=== PATIENT | female | born 1980 | race Hispanic/Latino ===

== ENCOUNTER 2017-11-13 19:18 | Observation (INO) | payer BC, OTHER ==
[2017-11-13] MEDS ORDERED: Lorazepam 2 MG/ML VIAL ONE (20:15)
[2017-11-13] MEDS ORDERED: Morphine 4 MG/ML VIAL ONE (20:15)
[2017-11-13] MEDS ORDERED: Dexamethasone 10 MG/ML VIAL ONE (20:16)
[2017-11-13 20:31] LABS: #Lymphocytes 1.5 thou/uL (1.20-3.40); #Monocytes 0.4 thou/uL (0.11-0.59); %Basophils 0.1 % (0.0-1.0); %Eosinophils 0.2 % (0.0-10.0); %Lymphocytes 10.1 % (21.0-51.0); %Monocytes 2.8 % (0.0-10.0); %Neutrophils 86.8 % (42.0-75.0); Hemoglobin 13.1 g/dL (12.0-16.0); Mean Corpuscular HGB CONC 35.5 g/dL (32.0-36.0); Mean Corpuscular Hemoglobin 33.1 pg (27.0-31.0); Mean Corpuscular Volume 93.3 fl (81.0-99.0); Mean Platelet Volume 7.2 fL (7.4-10.4); Platelet Count 319 thou/uL (130-400); RBC Distribution Width 11.3 % (11.5-14.5); Red Blood Cell (RBC) Count 3.95 mill/uL (4.20-5.40)
[2017-11-13 20:49] LABS: Anion Gap 10 mmol/L (10-20); BUN (Urea Nitrogen) 15 mg/dL (7.0-18.7); Calc. Creatinine Clearance 0 mL/min (70-130); Calcium 8.4 mg/dL (7.8-10.44); Carbon Dioxide 22 mmol/L (22-29); Chloride 109 mmol/L (98-107); Estimated GFR-MDRD 77; Glucose 146 mg/dL (70-105); Potassium 4.4 mmol/L (3.5-5.1); Sodium 137 mmol/L (136-145)
[2017-11-13 20:50] LABS: BHCG - Serum Negative (NEGATIVE); Pregs Control Background? CLEAR/WHITE (CLR/WHITE); Pregs Control Bar Appear? YES (CONTROL BAR)
--- NOTE | 2017-11-13 21:27 | PDOC.FPRHP ---
- History of Present Illness Chief Complaint: Low back pain History of Present Illness: 37 year old female with PMH of L4-L5 herniated disc and L3-L4 spinal fusion that presents with acutely worsening low back pain that radiates down her right leg. Patient states she has been dealing with this same pain since before her spinal fusion, but she has been able to tolerate it and carry on with her daily activities. She has tried multiple medications to include muscle relaxers, ibuprofen, and steroids. 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 Over the last two days they have not been effective at all. She was seen at [facility] yesterday and was given medications for pain control which did not help. She was then sent home. The pain has worsened to the point that she cannot bear weight on the right side. She is having difficulty lifting her leg to walk. Additionally, patient endorses numbness and tingling down the right extremity to the level of the toes. Pain is improved when lying flat. Patient denies any loss of bowel or bladder function. Patient' s spinal operation took place in October of [address] Ledbetter. Patient has been following with Dr. Ledbetter since that time. She has mentioned her pain to him recently and he had her get a suspension table for which she has been using. An MRI in August of 2016 showed similar changes seen on today's CT. Patient has been reluctant to have any surgical interventions up to this point; however, due to the nature of the pain and the limitations it is causing in her daily life, she is open to all options. Patient does endorse some mild urinary retention. She is able to urinate, but it has become less frequent. Patient denies any fever. Patient states that since the worsening of these symptoms, she has reached out to the [facility]. They were not able to get her in until Monday, November 20, 2017. At the [facility] yesterday, neurosurgery was called, and Dr. Osorio asked that patient follow up on an outpatient basis. He recommended 60 mg prednisone for 5 days. Based on ED records, it is unclear whether or not neurosurgery came to evaluate patient. ED Course: Patient given 10 mg decadron, 4 mg of morphine, and 1 mg of ativan in ED. - Allergies/Adverse Reactions Allergies Allergy/AdvReac Type Severity Reaction Status Date / Time tramadol AdvReac Verified 11/13/17 23:57 - Home Medications Medication Instructions Recorded Confirmed Type Diazepam [Diazepam] 5 mg PO Q4H 11/14/17 11/14/17 History Ibuprofen 800 mg PO PRN PRN 11/14/17 11/14/17 History predniSONE [predniSONE] 20 mg PO TID 11/14/17 11/14/17 History Comments: Patient has taken flexeril, steroids, and ibuprofen intermittently over the course of the last several years. She does endorse she takes ibuprofen 800 mg daily. - History PMHx: Hx of herniated disc PSHx: Spinal fusion L4-L5, BTL FHx: Non-contributory Social: Patient denies tobacco, alcohol, or drug use - Review of Systems General: denies: fever/chills, weight/appetite/sleep changes, night sweats, fatigue Eyes: denies: vision changes ENT: denies: nasal congestion, rhinorrhea Respiratory: reports: exercise intolerance (due to pain in low back and right leg). denies: cough, congestion, shortness of breath Cardiovascular: denies: chest pain, palpitation, edema Gastrointestinal: denies: nausea, vomiting, diarrhea, constipation, abdominal pain Genitourinary: reports: other (Mild urinary retention 2/2 back pain when trying to urinate. Feels as though cannot completely empty bladder.). denies: incontinence, dysuria, polyuria Skin: denies: rashes, lesions, jaundice Musculoskeletal: reports: pain (LBP and right leg pain), tenderness. denies: swelling, arthritis/arthralgias Neurological: reports: numbness, weakness (Right lower exremity). denies: syncope, seizure Psychological: denies: anxiety, depression - Vital signs BP: 123/76 HR: 81 RR: 18 Tmax: 97.7 F Pox: 97% on RA Wt: 83.91 kg - Physical Exam Constitutional: NAD, awake, alert and oriented, well developed HEENT: normocephalic and atraumatic, EOMI, conjunctiva clear, no scleral icterus Neck: supple Heart: RRR, normal S1/S2, no murmurs/rubs/gallops, pulses present, no edema Lungs: CTAB, no respiratory distress, good air movement, no rales/rhonchi, no wheezing Abdomen: soft, non-tender, bowel sounds present, no masses/distention Musculoskeletal: normal tone -Musculoskeletal: Positive straight leg raise on right. -Neurological: Impaired sensation on right lower extremity. Strength 5/5 in bilateral lower extremities, although there was mild weakness of right lower extremity compared to the left lower extremity. DTR's 2+ in bilateral lower extremities. No clonus. Normal rectal tone. Skin: no rash/lesions, good turgor, capillary refill <2 seconds Heme/Lymphatic: no unusual bruising or bleeding, no purpura, no petechia Psychiatric: normal mood and affect, good judgment and insight, intact recent and remote memory FMR H&P: Results - Labs Result Diagrams: 11/13/17 20:21 11/13/17 20:21 Lab results: WBC 15.0 thou/uL (4.8-10.8) H 11/13/17 20:21 Hgb 13.1 g/dL (12.0-16.0) 11/13/17 20:21 Hct 36.9 % (36.0-47.0) 11/13/17 20:21 MCV 93.3 fl (81.0-99.0) 11/13/17 20:21 Plt Count 319 thou/uL (130-400) 11/13/17 20:21 Neutrophils % 86.8 % (42.0-75.0) H 11/13/17 20:21 ESR Westergren 1 mm/hr (Less than 20) 11/13/17 20:21 Sodium 137 mmol/L (136-145) 11/13/17 20:21 Potassium 4.4 mmol/L (3.5-5.1) 11/13/17 20:21 Chloride 109 mmol/L (98-107) H 11/13/17 20:21 Carbon Dioxide 22 mmol/L (22-29) 11/13/17 20:21 BUN 15 mg/dL (7.0-18.7) 11/13/17 20:21 Creatinine 0.83 mg/dL (0.6-1.1) 11/13/17 20:21 Glucose 146 mg/dL (70-105) H 11/13/17 20:21 Calcium 8.4 mg/dL (7.8-10.44) 11/13/17 20:21 C-Reactive Protein Less than 0.50 mg/dL (= or < 0.5) 11/13/17 20:21 - Radiology Interpretation Other Status: report reviewed by me Additional comment: CT Lumbar spine without contrast: Right pericentral disc protrusion with canal stenosis at L4. Post op changes seen at L3-L4. FMR H&P: A/P - Problem List (1) Intractable low back pain Current Visit: No Status: Acute Code(s): M54.5 - LOW BACK PAIN (2) Lumbar herniated disc Current Visit: No Status: Chronic Code(s): M51.26 - OTHER INTERVERTEBRAL DISC DISPLACEMENT, LUMBAR REGION - Plan Intractable back pain: - 2/2 herniated disc at level of L4-L5 - Will continue decadron and add flexiril PRN for pain control - Pt with snf ibuprofen use, consider switching to celebrex - Monitor symptoms - Consider neurosurgical evaluation if symptoms persist or worsen - Mild urinary retention with no other suspicious findings concerning for cauda equina syndrome Herniated disc at L4-L5 - Evident on CT lumbar spine without contrast - Recommend follow up MRI; may consider as outpatient - Patient has appointment set up with [facility] on 2017 - Pt sees orthopedic surgeon, Dr. Ledbetter on an outpatient basis - May need surgical intervention; pt open to hearing options Code status: full PCP: Dr. Kirkpatrick PPX: DVT: SCDs GI: Famotidine Dispo: Admit for observation. Anticipate LOS <48 hours. FMR H&P: Upper Level - Pertinent history 37 yo HF with PMHx degenerative disc disease of spine and bulging disc presented to ED for worsening R leg pain/numbness. Pt endorses hx of R hip pain with some sciatica symptoms present for at least 2 years. She had an L3-L4 spinal fusion in 10/[address] Ledbetter (orthopedic surgery) although she apparently had other disease that could not be fixed due to anatomic technicalities (pt reports pedicles were too thin). She endorses worsening of her symptoms over last 3 days with pain in R leg severe enough to keep her from walking on it. She drags her leg instead due to pain. Endorses numbness/ tingling down entire leg into her foot. She also endorses feeling or urinary retention although she is still able to urinate. It takes longer to get urine to flow. Pain improves with laying flat. Worse with driving or standing. Pt went to [facility] ED yesterday; received steroids and dilaudid. Came back today due to worsened pain. Recently saw Dr. Ledbetter who reviewed an MRI performed 06/25 and said she might need more surgery. She has been taking NSAIDs, muscle relaxers, and steroids intermittently during this last year without much benefit. - Pertinent findings Gen: alert, laying flat in no distress CV: RRR, no m/r/g Lungs: CTAB, no increased WOB Abd: NT/ND Neuro: sensation feels different over anterior R leg (upper/lower) including dorsal/plantar foot compared to L; normal reflexes, no clonus, muscle strength 5 /5 BLE although R leg mildly decreased due to pain; gait not assessed 2/2 pain; great toe extension 5/5 bilaterally - Plan Date/Time: 11/13/172124 1. Disc herniation. CT lumbar spine confirms R paracentral disc protrusion with mild-moderate canal narrowing. Suggested nonemergent MRI. Previous MRI from through PCP mentioned improvement of prior document L4-L5 disc protrusion but L3-L4 and L5-S1 small disc protrusions were present at that time. Neuro exam not consistent with cauda equine syndrome. Only red flag symptom is new complaint of urinary retention although at this point still able to void. Will monitor closely. Ordering MRI to better evaluate. At [facility] yesterday, NSGY was called and appears outpatient f/u was recommended and 5 day course of steroids. She has an appt in 1 wk with [facility]. Bringing in under observation for pain control. Expect improvement with steroids and attempt to hold over until appt next week. Add flexeril. NSGY if needed. I, Oscar Santoro, have evaluated this patient and agree with findings/plan as outlined by wireless internet installer resident. Pertinent changes/additions are listed here. Attending Addendum - Attending Addendum Date/Time: 11/14/17 8875 I personally evaluated the patient and discussed the management with Dr. Mosquera and Dr. Santoro I agree with the History, Examination, Assessment and Plan documented above with any addition or exceptions noted below. 37 yo female with history of degenerative disk dz presents with intractable sciatic nerve pain and parathesia. Intractable pain that is unbearable over the last few days. Has been seen at outside ER yesterday. Unable to do anything without exacerbating the pain. Parathesia has worsen in this time period. Reports intermitted episodes that improve with conservative therapy but has not help current pain. Denies any loss of function. Has scheduled appointment on Monday with Spine MD. Labs reviewed. Imaging notes some stenosis. Admit for pain control. Start steroid taper. Add gabapentin or lyrica. Has been on Ibuprofen consider trying new NSAID vs celebrex. Add muscle relaxer as needed but does not appear to have complications related to spasms. If able to improve with regiment then will be able to get home for appointment otherwise consider consulting anaesthesia for pain. No upper or lower motor neuron findings on exam. Toni
[2017-11-13 21:29] LABS: Bilirubin Negative (Negative); Blood, Urine Negative (Negative); Clarity CLEAR (Clear); Glucose, Urine (Dipstick) Negative (Negative); Leukocyte Negative (Negative); Nitrite Negative (Negative); Protein, Urine (Dipstick) Negative (Neg-Trace); Specific Gravity, Urine 1.023 (1.002-1.036); pH, Urine 7.5 (5.0-9.0)
--- NOTE | 2017-11-13 21:39 | CT ---
CT LUMBAR SPINE PERFORMED WITHOUT CONTRAST ENHANCEMENT: HISTORY: Back pain and numbness down the entire right leg. History of previous surgery. FINDINGS: The vertebral bodies are normal in height. Postoperative changes are seen at the L3-L4 level. There are markers of a disk implant at this level, which are within the confines of the disk level and, po steriorly, an interspinous spacer is present. T12-L1: Unremarkable. L1-L2: Unremarkable. L2-L3: Unremarkable. L3-L4: No canal or foraminal stenosis. L4-L5: Some mild facet and ligamentous hypertrophic changes are seen with some borderline canal narr owing. The differentiation between the disk and the thecal sac is difficult, but there appears to be a right paracentral disk protrusion at this level, and this is causing a moderate degree of canal na rrowing inferior to the disk level. This would be better investigated with MRI on a nonemergent basi s. L5-S1: No canal or foraminal stenosis. IMPRESSION: Findings suspicious for right paracentral disk protrusion and possibly inferior disk extrusion from t he L4-L5 level. This is associated with a mild to moderate degree of canal narrowing. Further evalu ation with MRI is suggested for better assessment on a nonemergent basis. POS: [facility]
[2017-11-13] MEDS ORDERED: Ondansetron ODT 4 MG TAB SL PRN ×2 (22:53→23:33)
[2017-11-13] MEDS ORDERED: Ondansetron HCl/PF 4 MG/2 ML Vial IVP PRN ×2 (22:53→23:33)
[2017-11-13] MEDS: Morphine 4 MG/ML VIAL SLOW IVP PRN (23:12)
[2017-11-13] MEDS ORDERED: Acetaminophen 325 MG TAB PO PRN (23:33)
[2017-11-14 00:07] VITALS: BMI 35.5
[2017-11-14] MEDS: Cyclobenzaprine 10 MG TAB PO PRN ×3 (00:29→23:09)
[2017-11-14] MEDS: Morphine 4 MG/ML VIAL SLOW IVP PRN ×2 (01:20→07:31)
--- NOTE | 2017-11-14 06:11 | PDOC.FM ---
- Subjective Subjective: Patient had a better night. She states the steroids and pain medication has taken the edge off of the pain. She states that she doesn't really have pain at rest just when she moves around. She states the urinary retention is improved this AM. No chest pain, sob, n/v/d, fevers, chills, or rashes. She hasn't been up and moved around much because she is afraid of the pain. No other complaints this AM. - Objective Vital Signs & Weight: Vital Signs (12 hours) Temp Pulse Resp BP Pulse Ox 11/14/17 04:35 97.5 F L 64 18 116/63 97 11/13/17 23:12 98.7 F 80 18 Result Diagrams: 11/13/17 20:21 11/13/17 20:21 <Eyal Garcia - Last Filed: 11/14/17 07:50> - Objective Vital Signs & Weight: Vital Signs (12 hours) Temp Pulse Resp BP Pulse Ox 11/14/17 07:45 97.5 F L 64 18 11/14/17 07:15 97.2 F L 74 16 122/61 99 11/14/17 04:35 97.5 F L 64 18 116/63 97 11/13/17 23:12 98.7 F 80 18 I&O: 11/13/17 11/14/17 11/15/17 06:59 06:59 06:59 Intake Total 240 240 Balance 240 240 Result Diagrams: 11/13/17 20:21 11/13/17 20:21 <Navin Rivera - Last Filed: 11/14/17 10:19> Phys Exam - Physical Examination Constitutional: NAD HEENT: moist MMs Neck: no nodes Respiratory: no wheezing Cardiovascular: RRR, no significant murmur Gastrointestinal: soft, non-tender, no distention, positive bowel sounds Musculoskeletal: no edema, pulses present Neurological: moves all 4 limbs Parathesias to Right lower extremity. Positive straight leg test on right. RLE weakness due to pain. Scar from previous surgery over lumbar spine. Psychiatric: normal affect, A&O x 3 Skin: no rash <Eyal Garcia - Last Filed: 11/14/17 07:50> Dx/Plan (1) Intractable low back pain Code(s): M54.5 - LOW BACK PAIN Status: Acute (2) Lumbar herniated disc Code(s): M51.26 - OTHER INTERVERTEBRAL DISC DISPLACEMENT, LUMBAR REGION Status : Chronic - Plan Plan: Intractable back pain: - 2/2 herniated disc at level of L4-L5 - Will continue decadron and add flexiril PRN for pain control - Pt with termite helper ibuprofen use, consider switching to celebrex - Symptoms improved - Mild urinary retention with no other suspicious findings concerning for cauda equina syndrome - Will await results of MRI Herniated disc at L4-L5 - Evident on CT lumbar spine without contrast - MRI scheduled for this AM. - Patient has appointment set up with [facility] on 2017 - Pt sees orthopedic surgeon, Dr. Ledbetter on an outpatient basis - May need surgical intervention; pt open to hearing options Disposition: Will await results of MRI. Patient can likely follow up with Neurosurgery as outpatient if symptoms improve. <Eyal Garcia - Last Filed: 11/14/17 07:50> Attending Addendum - Attending Addendum Date/Time: 11/14/17 1017 I personally evaluated the patient and discussed the management with Dr. Garcia. I agree with the History, Examination, Assessment and Plan documented above with any addition or exceptions noted below. Patient now with some improvement in pain after Decadron and Flexeril treatment. Pain mgmt has been consulted for further therapy options and they have started Lyrica and ordered further back imaging. Work to get pain under control and see if pain mgmt offers any further treatment. Possibly ready for discharge this afternoon pending further workup. <Navni Rivera - Last Filed: 11/14/17 10:19>
[2017-11-14] MEDS: Famotidine 20 MG TAB PO SCH ×2 (07:33→19:44)
[2017-11-14] MEDS ORDERED: predniSONE 20 MG TAB PO SCH ×2 (08:00)
[2017-11-14] MEDS ORDERED: Acetaminophen/Codeine 30-300mg Tablet PO PRN (08:50)
--- NOTE | 2017-11-14 11:05 | CON ---
DATE OF CONSULTATION: 11/14/2017 ATTENDING PHYSICIAN: Dr. Kimo Ryder. HISTORY OF PRESENT ILLNESS: The patient is a 37-year-old female with a past medical history of L3-L4 fusion done by Dr. Ledbetter several years ago, otherwise healthy, who presented to the [facility] Department for low back and right leg pain. The patient reports she has had intermittent low b ack and right leg pain over the past few months, but constant intractable over the last week. She de scribes her pain as a sharp stabbing sensation in the right L5 pattern, is worsened with any standing and walking, better with rest. She followed up with her previous surgeon, Dr. Ledbetter, who did not do any additional imaging and recommended that she be referred to pain management for epidural stero id injection. The patient preferred second opinion and has an appointment at [facility] on 11/20/2017, but she was unable to make it to this appointment. She presented to the ER l ast night for intractable pain, and was admitted by the Family Medicine Service for further managemen t. She has been treated with IV Decadron, IV morphine and muscle relaxers with slight improvement in her symptoms. I am seeing the patient at the bedside. She is awake, alert, in no acute distress. She has free act sonya range of motion of all extremities. No focal motor weakness is appreciated. No reflex asymmetry . She does have a positive straight leg raise on the right. The patient does report some initial he sitancy and emptying her bladder; however, she reports that she feels like she once it is initiated, she is able to completely empty her bladder. PAST MEDICAL HISTORY: Herniated disk at L3-L4. PAST SURGICAL HISTORY: 3-[address] Ledbetter. FAMILY HISTORY: Noncontributory. SOCIAL HISTORY: The patient does not smoke, drink or use any drugs. ALLERGIES: The patient is allergic to TRAMADOL. She reports it gives her headache. PHYSICAL EXAMINATION: CONSTITUTIONAL: No acute distress, comfortable, awake, and alert. EYES: PERRLA. Extraocular movements intact. ENT: Oral mucosa is pink, intact, moist. She has normal voice. RESPIRATORY: No respiratory difficulty. Symmetric chest expansion. CARDIAC: Regular rate and rhythm. MUSCULOSKELETAL: Free active range of motion of all extremities. She does have a positive right str aight leg raise. No focal motor weakness. No reflex asymmetry. Negative Rodriguez's, negative clonus . NEUROLOGIC: AO x4. No focal motor weakness. ASSESSMENT AND PLAN: The patient has a history of prior L3-[address] Ledbetter several yea rs ago with a progressing worsening right L5 radiculopathy over the past few months, intractable for the last week. She is improving with IV steroids and pain medications here on admission. PLAN: We will plan to evaluate the patient's lumbar radiculopathy further with MRI of the lumbar spi ne with and without contrast and plain x-ray of the L-spine. I have also added Lyrica 75 mg p.o. b.i .d. to her regimen. We will follow these results.
[2017-11-14] MEDS ORDERED: Pregabalin 75 MG CAP PO SCH (12:15)
--- NOTE | 2017-11-14 12:37 | MRI ---
MRI LUMBAR SPINE WITH AND WITHOUT CONTRAST: HISTORY: Right leg and back pain with lumbar radiculopathy. COMPARISON: CT lumbar spine from 11/13/2017. TECHNIQUE: Multiplanar, multisequence MR images were obtained of the lumbar spine with and without IV contrast. FINDINGS: Disk desiccation is seen in the lower lumbar intervertebral disks. The conus medullaris terminates n ormally at T12-L1. The patient is status post posterior fusion of L3 and L4. The vertebral bodies d emonstrate normal alignment without fracture or subluxation. There is a disk spacer within the L3-L4 disk space. No abnormal enhancement is seen within the central canal. The prevertebral soft tissue s are unremarkable. T12-L1 THROUGH L2-L3: Unremarkable. L3-L4: This level is fused with a small central protrusion. No posterior facet arthrosis. No signi ficant neural foraminal or central canal stenosis. L4-L5: A small disk osteophyte complex is seen. There is an extruded disk fragment in the right sub articular region, measuring 1.1 cm in greatest dimension. This impresses upon the right L5 nerve marlene t. Mild central canal stenosis. Moderate bilateral neural foraminal stenosis. L5-S1: A small generalized concentric disk bulge is seen. No posterior facet arthrosis. No central canal stenosis. Moderate bilateral neural foraminal stenosis. IMPRESSION: Degenerative changes of the lumbar spine, as above. There is an extruded disk fragment at L4-L5, as above. POS: [facility]
--- NOTE | 2017-11-14 12:43 | RAD ---
LUMBAR SPINE THREE VIEWS: Comparison: Lumbar spine MRI 11-14-17. FINDINGS: Three views of the lumbosacral spine shows post cervical changes at the L3-4 level with posterior kin dware and a disc spacer at L3-4. Vertebral bodies demonstrate normal height without fracture or sublu xation. There is no perihardware lucency. IMPRESSION: Post-operative changes of the lumbar spine as above. POS: [facility]
[2017-11-14] MEDS ORDERED: Gadobenate Dimeglumine 529 MG/1 ML (20ML VIAL) ONE (15:05)
[2017-11-14] MEDS ORDERED: Morphine 4 MG/ML VIAL SLOW IVP SCH (17:45)
[2017-11-14] MEDS: Pregabalin 75 MG CAP PO SCH (19:44)
[2017-11-14] MEDS: HYDROcodone/Acetaminophen 10/325 mg Tablet PO PRN (19:45)
[2017-11-14] MEDS: Docusate 100 MG CAP PO SCH (20:54)
[2017-11-15] MEDS: HYDROcodone/Acetaminophen 10/325 mg Tablet PO PRN ×2 (03:10→08:21)
[2017-11-15] MEDS: Cyclobenzaprine 10 MG TAB PO PRN (06:14)
--- NOTE | 2017-11-15 06:21 | PDOC.FM ---
- Subjective Subjective: Patient states her pain is unchanged, but she is tolerating it more. She understands that the Lyrica takes a few days to take effect. She also states that her urinary symptoms are improved. She is waiting to see Dr. Ryder today sometime. No other complaints this morning. - Objective Vital Signs & Weight: Vital Signs (12 hours) Temp Pulse Resp BP Pulse Ox 11/15/17 03:10 97.4 F L 76 16 129/69 98 11/14/17 23:09 97.7 F 67 16 123/67 97 11/14/17 19:43 97.3 F L 69 16 123/76 96 I&O: 11/13/17 11/14/17 11/15/17 06:59 06:59 06:59 Intake Total 240 720 Balance 240 720 Result Diagrams: 11/13/17 20:21 11/13/17 20:21 <Eyal Garcia - Last Filed: 11/15/17 08:04> - Objective Vital Signs & Weight: Vital Signs (12 hours) Temp Pulse Resp BP BP Pulse Ox 11/15/17 08:00 98.2 F 70 16 11/15/17 07:39 98.2 F 70 16 129/75 99 11/15/17 03:10 97.4 F L 76 16 129/69 98 11/14/17 23:09 97.7 F 67 16 123/67 97 I&O: 11/14/17 11/15/17 11/16/17 06:59 06:59 06:59 Intake Total 240 840 10 Balance 240 840 10 Result Diagrams: 11/13/17 20:21 11/13/17 20:21 <Navin Rivera - Last Filed: 11/15/17 11:03> Phys Exam - Physical Examination HEENT: moist MMs Neck: no JVD Respiratory: no wheezing, clear to auscultation bilateral Cardiovascular: RRR, no significant murmur Gastrointestinal: soft, non-tender, no distention, positive bowel sounds Musculoskeletal: no edema, pulses present Neurological: moves all 4 limbs Parethesias RLE Psychiatric: normal affect, A&O x 3 Skin: no rash <Eayl Garcia - Last Filed: 11/15/17 08:04> Dx/Plan (1) Intractable low back pain Code(s): M54.5 - LOW BACK PAIN Status: Acute (2) Lumbar herniated disc Code(s): M51.26 - OTHER INTERVERTEBRAL DISC DISPLACEMENT, LUMBAR REGION Status : Chronic - Plan Plan: Intractable back pain: - 2/2 herniated disc at level of L4-L5 - Will continue decadron and add flexiril PRN for pain control - Pain management added [place] and Dr. Ryder to see patient today. - Symptoms improved - No further symptoms of urinary retention - MRI consistent with CT findings Herniated disc at L4-L5 - Evident on CT lumbar spine without contrast - MRI consistent with CT findings - Patient has appointment set up with [facility] on 2017 - Pt sees orthopedic surgeon, Dr. Ledbetter on an outpatient basis - Will likely have to have outpatient follow up with [facility] Disposition: Stable, Will await Dr. Ryder's evaluation. <Eyal Garcia - Last Filed: 11/15/17 08:04> Attending Addendum - Attending Addendum Date/Time: 11/15/17 1057 I personally evaluated the patient and discussed the management with Dr. Garcia. I agree with the History, Examination, Assessment and Plan documented above with any addition or exceptions noted below. Patient is going now for pain management procedure. NSGY recommended that and will wait to see how she tolerates. Fully expect that patient will be able to be discharged home after the procedure. <Navin Rivera - Last Filed: 11/15/17 11:03>
[2017-11-15] MEDS ORDERED: Dexamethasone 4 MG TAB PO SCH (08:00)
[2017-11-15] MEDS: Docusate 100 MG CAP PO SCH (08:18)
[2017-11-15] MEDS: Famotidine 20 MG TAB PO SCH (08:18)
[2017-11-15] MEDS: Pregabalin 75 MG CAP PO SCH (08:18)
[2017-11-15 08:26] VITALS: BP 129/75; TEMP 98.2
--- NOTE | 2017-11-15 09:38 | PRG ---
DATE OF SERVICE: 11/15/2017 The patient was seen and examined. I agree with Rozina Tineo's note of 11/14/2017. BRIEF HISTORY: Ms. Morales is a 37-year-old woman with a history of a L3-4 fusion elsewhere 2 year s ago from which she did reasonably well. She has, had 1 week of acute right L5 radiculopathy. Imag ing reveals a new right L4-5 disk herniation. She has tried Decadron, Lyrica and narcotic pain medicine and is still fairly miserable. We talked at length about treatment options. We are going to try to temporize her situation with an epidural steroid injection and will consult Dr. Nails and Dr. Foster in this regard. Follow ing the injection, she can be mobilized to dismissal and I will arrange outpatient followup to [facility] to monitor her progress and discuss surgical options should this become necessary.
--- NOTE | 2017-11-15 14:19 | CON ---
DATE OF CONSULTATION: 11/15/2017 REASON FOR CONSULTATION: Right lower extremity pain. CHIEF COMPLAINT: Lower back pain and right leg pain. HISTORY OF PRESENT ILLNESS: The patient is a 37-year-old female with past medical history of an L3-L 4 spinal fusion that presents with acutely worsening lower back pain with radiation to the right lowe r extremity. The pain started several months ago in her lower back, however, reached a point where i t was intractable 2 days ago. This subsequently resulted in an ER visit with admission. She has tri ed medications including muscle relaxers, ibuprofen and oral steroids without relief. The patient st ates that her pain is aching and sharp. The pain is denoted as a 9 on a 10. It starts in the right lower back and travels down the lateral leg all the way to the foot. She has noticed weakness in her right leg. She is nonweightbearing currently due to the pain. She denies fever, chills, bladder or bowel dysfunction. PAST MEDICAL HISTORY: Degenerative disk disease, lumbar spine. PAST SURGICAL HISTORY: Spinal fusion L3-L4 and also bilateral tubal ligation. FAMILY HISTORY: Lives at home, has 5 children, is . SOCIAL HISTORY: Denies tobacco, drug or alcohol use. ALLERGIES: States she is allergic to TRAMADOL as it gives her a headache. REVIEW OF SYSTEMS: Denies fever, chills, night sweats. Eyes: Denies vision changes. ENT: Denies nasal congestion or rhinorrhea. Respiratory: Denies cough, congestion, shortness of breath. Cardio vascular: Denies chest pain, palpitations, edema. Gastrointestinal: Denies nausea, vomiting, diarr hea, constipation. Genitourinary: Denies incontinence, dysuria, polyuria. Skin: Denies rashes, le sions or jaundice. Musculoskeletal: Reports pain in the lower back and right leg. Denies swelling, arthritis or arthralgias. Neurologic: Reports numbness and weakness in the right lower extremity. Denies syncope, seizure. Psychological: Denies anxiety, depression or jaqui. PHYSICAL EXAMINATION: VITAL SIGNS: Current vital signs are temperature of 98.2 degrees Fahrenheit, pulse of 70, respiratio ns 16, blood pressure 129/75 and 99% sat on room air. GENERAL: The patient is awake and alert and oriented x4, no visible distress currently. HEENT: Extraocular movements intact. ENT: Oral mucosa is pink, intact and moist. RESPIRATORY: No respiratory difficulty. Symmetric chest rise. CARDIAC: Regular rate and rhythm. MUSCULOSKELETAL: 5/5 strength in bilateral upper extremities and left lower extremity. There is 4/5 strength in right ankle dorsiflexion against resistance. Negative Rodriguez's, negative clonus, negat sonya Babinski. NEUROLOGICAL: Decreased temperature sensation to cold in the right lower extremity in the L5 distrib ution. Reflexes are intact in the bilateral lower extremities. IMAGING: MRI on 11/14/2017 displays a disk spacer within the L3-L4 disk space. This level has been fused at L3-L4. There is an extruded disk fragment at L4-L5 in the right subarticular area. This de finitely impresses on the right L5 nerve root. There is also [id number] bilateral neural sakina inal narrowing at this level. ASSESSMENT: 1. Lumbar radiculopathy due to disk herniation, M51.16. 2. Post-laminectomy syndrome, M96.1. PLAN: The patient has clear evidence of a right L5 radiculopathy due to a disk extrusion at L4-L5 an d pressing on the nerve in the subarticular zone. I will schedule her for a right L5-S1 transforamin al epidural steroid injection. We will start her on gabapentin 300 mg p.o. t.i.d. We will start her on [place] 10/325 mg 1-2 tablets q.8 hours p.r.n. pain for the next week until the injection takes eff ect. She will then follow up with us within 1-2 weeks after discharge from the hospital for further management. Thank you for the consult.
--- NOTE | 2017-11-15 14:27 | OP ---
DATE OF PROCEDURE: 11/15/2017 PREOPERATIVE DIAGNOSES: 1. Lumbar radiculopathy, M51.16. 2. M96.1. POSTOPERATIVE DIAGNOSES: 1. Lumbar radiculopathy, M51.16. 2. M96.1. PROCEDURE: Lumbar transforaminal epidural steroid injection, right L5-S1. SUMMARY OF PROCEDURE: Informed consent was obtained; the patient was advised of the procedure and in formed of the potential complications as well as alternatives to the procedure. The patient was take n to the procedure room and placed prone on the procedure room table. Fluoroscopic guidance was used to identify the appropriate spinal level of L5-S1. Hibiclens was used to prep the back. Sterile dr apes were applied. We anesthetized the skin using a solution of lidocaine 2% for skin and subcutaneo us anesthesia. A 22-gauge Chiba spinal needle with a bend at the tip was advanced under fluoroscopic guidance to the foramen at the right L5-S1 level. PA and lateral views as well as oblique views wer e obtained to ensure proper placement. Contrast was injected after negative aspiration, which outlin ed the foraminal space as well as the epidural space. A 1 mL of contrast was used. Marcaine 0.25%, 1 mL as well as Depo-Medrol 80 mg was injected without pain or paresthesia. The needle was withdrawn . No complications were noted at this time. Vital signs were monitored before, during, and after th e procedure and were all within stable limits. The patient was monitored for approximately 15 minute s. All vital signs were stable and neurological status was assessed. The patient tolerated the proc edure well and was sent back to the floor under stable condition.
--- NOTE | 2017-11-15 16:33 | DIS-2 ---
DATE OF ADMISSION: 11/13/2017 DATE OF DISCHARGE: 11/15/2017 PRIMARY CARE PHYSICIAN: Dr. Garcia. ADMITTING ATTENDING: Dr. Santos. DISCHARGE ATTENDING: Dr. Rivera. CONSULTS: Neurosurgery, Dr. Ryder and with pain management with Dr. Foster as well as PT. PROCEDURES: The patient underwent a lumbar spine CT on 11/13/2017 that showed findings suspicious for right paracentral disk protrusion and possibly inferior disk protrusion from the L4-L5 level. This is associated with mild to moderate degree of canal narrowing. Further evaluation of MRI is suggested for better assessment on a nonemergent basis. Patient underwent a lumbar spine MRI on 11/14/2017 that showed there is extruded disk fragment of L4-L5 with degenerative changes noted in the lumbar spine. Patient underwent a lumbar spine x-ray on 11/14/2017 that showed postoperative changes of the lumbar spine as above and the patient underwent an epidural steroid injection with Dr. Foster on 11/15/2017 with no complications. PRIMARY DIAGNOSES: 1. Intractable low back pain. 2. Lumbar herniated disk. DISCHARGE MEDICATIONS: 1. Diazepam 5 mg p.o. q.4 hours. 2. Ibuprofen 800 mg p.o. p.r.n. 3. Acetaminophen 650 mg p.o. q.4 hours. 4. Flexeril 10 mg p.o. t.i.d. p.r.n. 5. Lyrica 75 mg p.o. b.i.d. 6. Dexamethasone 10 mg p.o. daily for 5 additional days. DISCONTINUED MEDICATIONS: Prednisone 20 mg t.i.d. HISTORY OF PRESENT ILLNESS AND HOSPITAL COURSE: Patient is a 37-year-old female with past medical history of L4-L5 herniated disk and an L3-L4 spinal fusion that presents with acutely worsened low back pain that radiates down her right leg. Patient says she has been dealing with same pain since before spinal fusion, but she has been able to tolerate it and carry on her daily activities. She has tried multiple medications to include muscle relaxers , ibuprofen and steroids, p.o. This seemed to help temporarily, but not long- term. Over the last 2 days, she has had an exacerbation of these symptoms. She was seen by her surgeon that did her operation in 2016, Dr. Ledbetter in [place] and was given some oral pain medications for pain control did not help and she was sent home. Patient has been reluctant to have any surgical interventions up to this point after an MRI in 08/2016 showed similar disease as the evaluation does today. The patient does endorse some mild urinary retention. She is able to urinate, but it becomes less frequent. Patient has denied any fevers or any rashes and she does have an appointment scheduled with [facility] on Monday11/20/2017. In the ER , she was given 10 mg of Decadron, 4 mg of morphine and 1 mg of Ativan. During this hospitalization, patient did not have any significant lab abnormalities. She did have a white blood cell count of 15.0. We attribute that to her recent prednisone use. Patient was afebrile during this entire hospitalization, had normotensive blood pressure and her pulse ranged from 60s- 80s. Patient continued to complain of back pain without any relief of the paresthesias and pain; however, her urinary retention was evaluated and found to not be urinary retention, but just some delaying of urination because of the pain position. She was seen by pain management and they recommended an epidural steroid injection. They were instructed the patient that she will not have good relief for roughly 1-3 days following the epidural steroid injection, but she is to continue the steroids orally and follow up with Dr. Ryder at [facility] as an outpatient that she has scheduled already. The patient otherwise had no further complications in this hospitalization and was discharged in appropriate condition. DISPOSITION: Stable. DISCHARGE INSTRUCTIONS: 1. She will be discharged home under the care of herself. 2. Diet will be as tolerated with no restrictions. 3. Activity will be orthopedic limitations because of the pain from her back. FOLLOWUP: Followup will be with Dr. Kirkpatrick, her primary care provider in 3 days as [address] as Dr. Ryder at the [facility] on Monday. We wish this patient a best of luck and hope she has no further complications from this disease. PAUL
== END 2017-11-15 12:11 | disposition home or self-care (01) ==
LOC: ERS 19:18 → 2SW 22:58
PROVIDERS: ADMIT Student in an Organized Health Care Education/Training Program; ATTEND Student in an Organized Health Care Education/Training Program
PROC: 3E0R3BZ Introduction of Anesthetic Agent into Spinal Canal, Percutaneous Approach (ICD-10-PCS; principal; 2017-11-15)
DX: M96.1 Postlaminectomy syndrome, not elsewhere classified (principal); M51.16 Intervertebral disc disorders with radiculopathy, lumbar region; Z88.5 Allergy status to narcotic agent; Z79.52 Long term (current) use of systemic steroids; Z79.899 Other long term (current) drug therapy; Z98.1 Arthrodesis status
CPT/HCPCS: 36415; 72100; 72131; 72158; 80048; 81003; 84703; 85025; 85652; 86140; 96374; 96375; 96376; A4216; A9579; G0378; J1100; J2060; J2270; J7506; J8540

== ENCOUNTER 2018-02-05 10:00 | Inpatient (IN) | payer OTHER ==
[2018-02-05 10:59] VITALS: BMI 33.8
[2018-02-12] MEDS ORDERED: Sodium Chloride 0.9% 10 ML ONE (06:27)
[2018-02-12] MEDS ORDERED: CEFAZOLIN/Water 2 GM/20 ML SYRINGE ONE (06:30)
[2018-02-12] MEDS ORDERED: Fentanyl 100 MCG/2 ML VIAL ONE ×5 (06:37→11:29)
[2018-02-12] MEDS ORDERED: Midazolam HCl 2 mg/2 ml Vial ONE ×2 (06:38→06:48)
--- NOTE | 2018-02-12 08:43 | OP ---
DATE OF PROCEDURE: 02/12/2018 SURGEON: Kimo Ryder M.D. BUDGET SPECIALIST: Deana Diana PROCEDURE: Removal of hardware L3-4, exploration spinal fusion L3-4, right L4-5 laminectomy, facetec adina, foraminotomy, and discectomy, interbody arthrodesis, intravertebral biomechanical device, local morselized autograft, demineralized bone matrix, posterior lateral arthrodesis and pedicle screw ins trumentation L4-L5. PROCEDURE IN DETAIL: The patient was brought into the operating room and intubated. She was rolled in the prone position on gel-filled chest rolls. Incision made exposing the previous incision and do wn through L5 and our level was confirmed by x-ray. We identified the interspinous device at L3-4 an d it was clearly in the way of exposing L4, so this was removed. The fusion at L3-4 was explored and found to be solid. We next performed a right L4-5 laminectomy, facetectomy, and foraminotomy, ident ified right L4, right L5 and removed the intravertebral disc, completely decompressing the right L5 n erve root. This nerve root was thoroughly explored and no compression was identified following the d iscectomy. The disk space itself was incised and debrided and the bony endplates decorticated for th e purpose of arthrodesis. An appropriately sized intravertebral biomechanical PEEK device was sherley t into the field, filled with demineralized bone matrix, local morselized autograft, and tapped into place securely at L4-5. Next, pedicle screws were placed at right L4 and right L5 using lateral fluo roscopic guidance and positioning was confirmed by x-ray. A kirk was secured between the screws. Com pression was applied. Nuts were secured and final tightened. The wound was then extensively irrigat ed, immaculate hemostasis was secured. A combination of demineralized bone matrix, local morselized autograft was laid over the left laminar and posterolateral surfaces for the purpose of arthrodesis. Vancomycin powder was applied and the wound was closed in anatomic layers.
[2018-02-12] MEDS ORDERED: HYDROmorphone 0.5 MG/0.5 ML SYRINGE ONE ×5 (08:49→09:30)
[2018-02-12] MEDS ORDERED: Promethazine HCl 25 MG/ML VIAL SLOW IVP PRN (08:54)
[2018-02-12] MEDS ORDERED: Ondansetron HCl/PF 4 MG/2 ML Vial IVP PRN (08:54)
[2018-02-12] MEDS ORDERED: Promethazine HCl 25 MG/ML VIAL IM PRN (08:54)
[2018-02-12] MEDS ORDERED: HYDROmorphone 2 MG/ML VIAL SLOW IVP PRN (08:54)
[2018-02-12] MEDS ORDERED: PHENYLEPHRINE-NS 100 MCG/ML 10 ML SYRINGE ONE (09:30)
[2018-02-12] MEDS ORDERED: Glycopyrrolate 0.2 MG/ML 5 ML SYRINGE ONE (09:30)
[2018-02-12] MEDS ORDERED: Ketorolac Tromethamine 30 MG/ML VIAL ONE (09:30)
[2018-02-12] MEDS ORDERED: Dexamethasone 20 MG/5 ML VIAL ONE (09:30)
[2018-02-12] MEDS ORDERED: Ondansetron HCl/PF 4 MG/2 ML Vial ONE (09:30)
[2018-02-12] MEDS ORDERED: Lidocaine 1% PF 5 ML VIAL ONE (09:30)
[2018-02-12] MEDS ORDERED: PROPOFOL 200 MG/20 ML VIAL ONE (09:30)
[2018-02-12] MEDS ORDERED: tiZANidine HCl 4 MG TAB ONE (11:21)
[2018-02-12] MEDS ORDERED: Promethazine 25 MG TAB PO PRN (12:43)
[2018-02-12] MEDS ORDERED: Mag-Al 1200 mg/1200 mg/30 ML UDCUP PO PRN (12:43)
[2018-02-12] MEDS ORDERED: Bisacodyl 10 MG SUPP PR PRN (12:43)
[2018-02-12] MEDS ORDERED: Acetaminophen 650 MG Suppository PR PRN (12:43)
[2018-02-12] MEDS ORDERED: Milk Of Magnesia 30 ML UDCUP PO PRN (12:43)
[2018-02-12] MEDS ORDERED: Ondansetron HCl/PF 4 MG/2 ML Vial IM PRN (12:43)
[2018-02-12] MEDS ORDERED: tiZANidine HCl 4 MG TAB PO PRN (12:43)
[2018-02-12] MEDS ORDERED: Promethazine HCl 12.5 MG SUPP PR PRN (12:43)
[2018-02-12] MEDS ORDERED: Acetaminophen 325 MG TAB PO PRN (12:43)
[2018-02-12] MEDS ORDERED: diphenhydrAMINE 25 MG CAP PO PRN (12:43)
[2018-02-12] MEDS ORDERED: diphenhydrAMINE 50 MG/ML VIAL IVP PRN (12:43)
[2018-02-12] MEDS: Morphine 4 MG/ML VIAL SLOW IVP PRN ×3 (13:01→23:38)
[2018-02-12] MEDS: Promethazine HCl 25 MG/ML VIAL IM PRN ×2 (13:55→23:25)
[2018-02-12] MEDS: Sodium Chloride 0.9% 1,000 ML IV SCH ×2 (14:14→23:25)
[2018-02-12] MEDS: HYDROcodone/Acetaminophen 10/325 mg Tablet PO PRN ×2 (16:34→20:42)
[2018-02-12] MEDS: Cyclobenzaprine 10 MG TAB PO PRN (18:35)
[2018-02-13] MEDS: CEFAZOLIN/Water 2 GM/20 ML SYRINGE SLOW IVP SCH ×2 (00:24→05:05)
[2018-02-13] MEDS: HYDROcodone/Acetaminophen 10/325 mg Tablet PO PRN ×6 (00:53→23:03)
[2018-02-13] MEDS: Cyclobenzaprine 10 MG TAB PO PRN ×3 (02:39→19:40)
--- NOTE | 2018-02-13 07:22 | PRG ---
DATE OF SERVICE: 02/13/2018 The patient is a 37-year-old female postop day #1, L4-L5 decompression and fusion. Postoperatively, she did have some pain control issues initially, but she reports she is doing much better this mornin g. She is tolerating a regular diet and voiding appropriately. She has been ambulating short distan ce throughout the department. Her incision is dry with no drainage issues at this time. I have disc ussed with the patient and she prefers to stay an additional night for pain control and we will cady nue to mobilize and advance her diet. I anticipate the patient will be discharged to home in the [facility].
[2018-02-13] MEDS: Gabapentin 300 MG CAP PO SCH (08:21)
[2018-02-13] MEDS: Sodium Chloride 0.9% 1,000 ML IV SCH (15:38)
[2018-02-14] MEDS: Sodium Chloride 0.9% 1,000 ML IV SCH (05:05)
[2018-02-14] MEDS: HYDROcodone/Acetaminophen 10/325 mg Tablet PO PRN ×2 (06:04→10:10)
[2018-02-14] MEDS: Gabapentin 300 MG CAP PO SCH (07:42)
[2018-02-14] MEDS: Cyclobenzaprine 10 MG TAB PO PRN (07:42)
[2018-02-14 12:27] VITALS: BP 110/72; TEMP 98.1
--- NOTE | 2018-02-14 13:46 | DIS ---
DATE OF ADMISSION: 02/12/2018 DATE OF DISCHARGE: 02/14/2018 HOSPITAL COURSE: The patient is a 37-year-old female known to us for a prior L3-4 lumbar fu jay with progressive right leg pain who underwent removal of hardware and extension of lumbar fusion to L4-L5. Postoperatively, her pain improved during her admission course. She has been well contro lled with p.o. medications for the last 24 hours, tolerating a regular diet, and voiding appropriatel y. She has been ambulatory throughout the department without any difficulty. Her dressing remains d ry. We will plan to dismiss to home later today. I have discussed home care precautions and reasons to reach out to us sooner. We will plan to follow up in the office in 2 weeks with lumbar x-rays. I have prescribed [place], Zanaflex, Keflex.
== END 2018-02-14 12:06 | disposition home or self-care (01) | DRG 460 ==
LOC: SURG A 02-12 06:24 → SURG B 02-12 12:15
PROVIDERS: ADMIT Neurological Surgery; ATTEND Neurological Surgery
PROC: 0QP Lower Bones, Removal (ICD-10-PCS; principal; 2018-02-12)
PROC: 0SG03AJ Fusion of Lumbar Vertebral Joint with Interbody Fusion Device, Posterior Approach, Anterior Column, Percutaneous Approach (ICD-10-PCS; 2018-02-12)
PROC: 01NB3ZZ Release Lumbar Nerve, Percutaneous Approach (ICD-10-PCS; 2018-02-12)
PROC: 0SB23ZZ Excision of Lumbar Vertebral Disc, Percutaneous Approach (ICD-10-PCS; 2018-02-12)
DX: M47.26 Other spondylosis with radiculopathy, lumbar region (principal); Z47.2 Encounter for removal of internal fixation device
CPT/HCPCS: 76001; 96374; A4216; C1713; C1768; G8978-GP-CI; G8979-GP-CI; G8980-GP-CI; J1100; J1170; J1885; J2001; J2250; J2270; J2405; J2550; J2704; J3010; J3370; J3490

== ENCOUNTER 2018-02-05 10:32 | Outpatient (CLI) | payer OTHER ==
[2018-02-05 12:19] LABS: #Eosinphils 0.1 thou/uL (0.0-0.7); #Lymphocytes 1.7 thou/uL (1.20-3.40); #Monocytes 0.4 thou/uL (0.11-0.59); #Neutrophils 5.6 thou/uL (1.40-6.50); %Basophils 0.5 % (0.0-1.0); %Lymphocytes 21.5 % (21.0-51.0); %Monocytes 5.1 % (0.0-10.0); %Neutrophils 71.9 % (42.0-75.0); Hemoglobin 13.3 g/dL (12.0-16.0); Mean Corpuscular HGB CONC 34.9 g/dL (32.0-36.0); Mean Corpuscular Hemoglobin 32.4 pg (27.0-31.0); Mean Corpuscular Volume 92.9 fL (78.0-98.0); Mean Platelet Volume 7.1 fL (7.4-10.4); Platelet Count 276 thou/uL (130-400); RBC Distribution Width 11.5 % (11.5-14.5); White Blood Cell (WBC) Count 7.8 thou/uL (4.8-10.8)
[2018-02-05 12:42] LABS: Anion Gap 13 mmol/L (10-20); BUN (Urea Nitrogen) 10 mg/dL (7.0-18.7); Calc. Creatinine Clearance 0 mL/min (70-130); Carbon Dioxide 24 mmol/L (22-29); Chloride 105 mmol/L (98-107); Estimated GFR-MDRD 89; Glucose 106 mg/dL (70-105); Potassium 4.3 mmol/L (3.5-5.1); Sodium 138 mmol/L (136-145)
--- NOTE | 2018-02-05 22:39 | EKG ---
Test Reason : Blood Pressure : / mmHG Vent. Rate : 096 BPM Atrial Rate : 096 BPM P-R Int : 148 ms QRS Dur : 082 ms QT Int : 340 ms P-R-T Axes : 056 054 008 degrees QTc Int : 429 ms Normal sinus rhythm Normal ECG No previous ECGs available Confirmed by Tani DE LA TORRE ([id number]) on 02/05/2018 10:38:47 PM Referred By: TYREL Confirmed By:Tani DE LA TORRE
== END 2018-02-05 10:33 | disposition home or self-care (01) ==
LOC: LABBT 10:32
PROVIDERS: ATTEND Neurological Surgery
DX: Z01.818 Encounter for other preprocedural examination (principal); M54.16 Radiculopathy, lumbar region
CPT/HCPCS: 80048; 85025; 93005; 93010

== ENCOUNTER 2018-04-10 15:57 | Outpatient (CLI) | payer OTHER ==
--- NOTE | 2018-04-10 16:17 | RAD ---
TWO VIEWS LUMBAR SPINE: History: Follow up exam. Lumbar radiculopathy. Status post-surgery. Comparison: 02-27-18 FINDINGS: Stable right sided transpedicular screw at L4 and L5. There is a disc prosthesis at L3-4 and L4-5. Vertebral body heights are maintained. No fracture. No spondylolisthesis or spondylolysis. IMPRESSION: Uncomplicated and essentially stable surgical changes. POS: CLARITA
== END 2018-04-10 15:58 | disposition home or self-care (01) ==
LOC: TBSIIMAG 15:57
PROVIDERS: ATTEND Neurological Surgery
DX: M54.5 Low back pain (principal); Z98.890 Other specified postprocedural states
CPT/HCPCS: 72100

== ENCOUNTER 2018-07-12 10:52 | Outpatient (CLI) | payer OTHER ==
--- NOTE | 2018-07-12 12:35 | RAD ---
TWO VIEWS OF THE LUMBAR SPINE: DATE: 07/12/2018. COMPARISON: 04/10/2018. HISTORY: Lumbar radiculopathy, reevaluate following surgery. FINDINGS: Five lumbar-type vertebral bodies present. Intervertebral disk devices are again noted at L3-4 and L 4-5, unchanged. Stable right-sided L4 and L5 pedicle screws with vertically oriented interlocking ro ds. No anterolisthesis or retrolisthesis. No acute osseous abnormality. IMPRESSION: Stable postoperative hardware within the lower lumbar spine. POS: CLARITA
== END 2018-07-12 10:53 | disposition home or self-care (01) ==
LOC: TBSIIMAG 10:52
PROVIDERS: ATTEND Neurological Surgery
DX: M54.16 Radiculopathy, lumbar region (principal); Z98.890 Other specified postprocedural states
CPT/HCPCS: 72100

== ENCOUNTER 2019-01-09 17:29 | Emergency (ER) | payer OTHER ==
[2019-01-09 18:33] LABS: Bilirubin Negative (Negative); Blood, Urine Negative (Negative); Clarity Clear (Clear); Glucose, Urine (Dipstick) Normal (Negative); Leukocyte Negative Leu/uL (Negative); Nitrite Negative (Negative); Protein, Urine (Dipstick) Negative (Neg-Trace); RBC/HPF 0-3 HPF (0-3); Urobilinogen Normal mg/dL (Less than 2); WBC/HPF 0-3 HPF (0-3)
[2019-01-09 18:37] LABS: Bacteria/HPF None Seen HPF (None Seen); Pregnancy Test - Urine (BHCG) Negative (Negative); Pregu Control Background? CLEAR/WHITE (CLR/WHITE); Pregu Control Bar Appear? YES (CONTROL BAR); Specific Gravity 1.015 (1.002-1.036)
--- NOTE | 2019-01-09 20:48 | CT ---
CT Abdomen Pelvis W Con: 01/09/2019 12:00 AM CLINICAL INFORMATION: Lower abdominal pain for several months. COMPARISON: None. TECHNIQUE: Multiple contiguous axial images were obtained and a CT of the abdomen and pelvis with IV contrast. Oral contrast was administered. Coronal reformats were performed. FINDINGS: Lower Chest: within normal limits. Abdomen: Liver: within normal limits. Bile Ducts: Normal caliber. Gallbladder: No calcified gallstones. Normal caliber wall. Pancreas: within normal limits. Spleen: within normal limits. Adrenals: within normal limits. Kidneys: within normal limits. Pelvis: Reproductive Organs: No pelvic masses. Ureters: within normal limits. Bladder: within normal limits. Peritoneum: No ascites or free air, no fluid collection. Bowel: Normal caliber. Mesentery and Retroperitoneum: No enlarged mesenteric or retroperitoneal lymph nodes. Vessels: Normal. Abdominal Wall: within normal limits. Bones: Postsurgical changes in the lower lumbar spine. IMPRESSION: No evidence of acute intraabdominal\pelvic abnormality.
== END 2019-01-09 21:25 | disposition home or self-care (01) ==
LOC: ERS 17:29
DX: N30.90 Cystitis, unspecified without hematuria (principal)
CPT/HCPCS: 36415; 74177; 80053; 80061; 81003; 81025; 84439; 84481; 85025; 86376; 86800

== ENCOUNTER 2019-05-21 07:10 | Day surgery (SDC) | payer OTHER ==
[~2019-05-21 07:10] MED LIST: FLU VACC QS2019-20(6MOS UP)/PF 60 MCG/0.5 ML SYRINGE IM ONE
[2019-05-21 08:18] VITALS: BP 117/75; TEMP 97.3
--- NOTE | 2019-05-21 08:35 | RAD ---
Exam:2 views right hip HISTORY: Pain COMPARISON: None FINDINGS: Visualized bony pelvis is intact. Contour of the femoral head is maintained. No fracture. H ip joint spaces preserved. IMPRESSION: Unremarkable 2 views right hip
--- NOTE | 2019-05-21 09:08 | RAD ---
THORACIC AND LUMBAR MYELOGRAM: HISTORY: Thoracic spine pain. Lumbar radiculopathy. EXPOSURE: 0.8 minutes. 458.7 mGy*^m2. FINDINGS: Two views of the thoracic spine information assurance analyst radiograph demonstrates 12 thoracic-type vertebrae. Vertebral b nancy height is maintained. No fracture. Disc space heights are preserved. Two views of the lumbar spine information assurance analyst radiograph demonstrates 5 lumbar-type vertebrae. Disc prosthesis at L3-L4 and L4-L5. Unilateral right-sided transpedicular screw at L4-L5 without. Perihardware lucency. No spondylolisthesis or spondylolysis. Successful lumbar puncture. A total of 9 cc of Isovue-M 300 contrast was administered intrathecally. TECHNIQUE: Consent obtained to perform a lumbar puncture for a blastic and lumbar spine myelogram. The L2-L3 lev el was deemed appropriate. Skin was prepped and draped in sterile fashion. 1% lidocaine, buffered with sodium bicarbonate was used for local anesthesia. Under fluoroscopic guidance, a 22-gauge spinal needle was advanced into the CSF space. There is prompt flow of clear CSF to the hub of the needle. Via a short tubing catheter, total of 9 cc of Isovue-M 300 contrast was administered intrathe rinku. Patient was placed in Trendelenburg position and the contrast flowed freely from the lumbar spine to the thoracic spine. Patient tolerated the procedure well. No immediate or postprocedure comp lication. IMPRESSION: Successful thoracic and lumbar spine myelogram. Transcribed Date/Time: 05/21/2019 9:31 AM
[2019-05-21] MEDS ORDERED: Acetaminophen 500 MG TAB ONE (09:24)
--- NOTE | 2019-05-21 09:34 | CT ---
CT OF THE THORACIC SPINE WITHOUT CONTRAST: HISTORY: Back pain. COMPARISON: None. FINDINGS: Visualized mediastinum, lung parenchyma and solid organs are grossly unremarkable. The thoracic cord has an overall normal size. No cord expansion. No volume loss. Conus medullaris ter minates at the mid L1 level. Throughout the thoracic spine, there is no significant posterior disc abnormality. No significant bharat tral canal stenosis. No significant neural foraminal narrowing. Thoracic spine vertebral body heights are maintained. No fracture. There are 12 thoracic-type vertebrae. IMPRESSION: Unremarkable thoracic spine myelogram. Transcribed Date/Time: 05/21/2019 9:39 AM
--- NOTE | 2019-05-21 11:26 | CT ---
CT LUMBAR SPINE WITH CONTRAST: Date: 05/21/19 INDICATION: Lumbar radiculopathy. FINDINGS: There is postoperative fusion of L4-5 with right side pedicle screws at L4 and L5 conjoined by a vert ical kirk. Disc space prostheses are present at the L3-4 and L4-5 disc spaces. Conus medullaris normal in morphology and terminates at the L1 level. The imaged lower thoracic spine vertebral canal is patent. L1-2: No significant stenosis. L2-3: No significant stenosis. L3-4: Mild osteophyte ridge without significant stenosis. L4-5: Mild central canal stenosis due to broad based osteophyte ridge. There is mild narrowing of th e neural foramina due to osteophyte ridge and facet hypertrophy, bilaterally. L5-S1: No significant central canal stenosis. Osteophyte formation and facet hypertrophy result in m oderate bilateral osseous compromise of the neural foramina. IMPRESSION: Postoperative lumbar spine with degenerative changes at the lower lumbar spine producing mild central canal stenosis at L4-5, and moderate osseous compromise of the bilateral neural foramina at L5-S1. POS: TPC
[2019-05-21] MEDS ORDERED: Iopamidol-M 300 61% 15 ML VIAL ONE (13:35)
== END 2019-05-21 10:10 | disposition home or self-care (01) ==
LOC: RAD 07:10
PROVIDERS: ATTEND Neurological Surgery
PROC: B02B1ZZ Computerized Tomography (CT Scan) of Spinal Cord using Low Osmolar Contrast (ICD-10-PCS; principal; 2019-05-21)
DX: M54.16 Radiculopathy, lumbar region (principal); M48.061 Spinal stenosis, lumbar region without neurogenic claudication; M54.6 Pain in thoracic spine; Z88.5 Allergy status to narcotic agent
CPT/HCPCS: 62305; 72129; 72132; Q9967

== ENCOUNTER 2022-01-13 11:12 | Emergency (ER) | payer BC ==
[2022-01-13 12:07] LABS: #Lymphocytes 2.8 thou/uL (1.20-3.40); #Monocytes 1.4 thou/uL (0.11-0.59); #Neutrophils 11.8 thou/uL (1.40-6.50); %Basophils 0.1 % (0.0-1.0); %Eosinophils 0.1 % (0.0-10.0); %Lymphocytes 17.5 % (21.0-51.0); %Monocytes 8.9 % (0.0-10.0); %Neutrophils 73.3 % (42.0-75.0); Hemoglobin 15.1 g/dL (12.0-16.0); Mean Corpuscular HGB CONC 33.3 g/dL (32.0-36.0); Mean Corpuscular Hemoglobin 31.8 pg (27.0-31.0); Mean Corpuscular Volume 95.3 fL (78.0-98.0); Mean Platelet Volume 7.9 fL (7.4-10.4); Platelet Count 253 thou/uL (130-400); RBC Distribution Width 11.3 % (11.5-14.5); Red Blood Cell (RBC) Count 4.75 mill/uL (4.20-5.40); White Blood Cell (WBC) Count 16.1 thou/uL (4.8-10.8)
[2022-01-13 12:26] LABS: ALT (SGPT) 17 U/L (8-55); AST (SGOT) 15 U/L (5-34); Albumin 4.4 g/dL (3.5-5.0); Alkaline Phosphatase 75 U/L (40-110); Anion Gap 16 mmol/L (10-20); BUN (Urea Nitrogen) 24 mg/dL (7.0-18.7); Bilirubin, Total 0.6 mg/dL (0.2-1.2); Calc. Creatinine Clearance 0 mL/min (70-130); Calcium 9.6 mg/dL (7.8-10.44); Carbon Dioxide 21 mmol/L (22-29); Chloride 107 mmol/L (98-107); Estimated GFR 41; Globulin 3.4 g/dL (2.4-3.5); Glucose 140 mg/dL (70-105); Potassium 3.4 mmol/L (3.5-5.1); Protein, Total 7.8 g/dL (6.0-8.3); Sodium 141 mmol/L (136-145)
[2022-01-13] MEDS ORDERED: diphenhydrAMINE 50 MG/ML VIAL ONE (14:26)
[2022-01-13] MEDS ORDERED: Prochlorperazine 10 MG/2 ML VIAL ONE (14:26)
[2022-01-13] MEDS ORDERED: Acetaminophen 500 MG TAB ONE (14:26)
[2022-01-13 15:12] LABS: Bilirubin Negative (Negative); Blood, Urine Negative (Negative); Clarity Clear (Clear); Glucose, Urine (Dipstick) Normal (Negative); Ketone, Urine Negative (Negative); Leukocyte Negative Leu/uL (Negative); Nitrite Negative (Negative); Protein, Urine (Dipstick) Negative (Neg-Trace); Specific Gravity, Urine 1.013 (1.002-1.036); Urobilinogen Normal mg/dL (Less than 2); pH, Urine 5.5 (5.0-9.0)
== END 2022-01-13 15:30 | disposition home or self-care (01) ==
LOC: ERS 11:12
DX: R53.1 Weakness (principal); R51.9 Headache, unspecified; Z20.822 Contact with and (suspected) exposure to COVID-19
CPT/HCPCS: 36415; 71045; 80053; 81003; 83605; 84484; 85025; 93005; 94760; 96361; 96374; 96375; J0780; J1200; U0003; U0005

== ENCOUNTER 2022-10-12 09:29 | Outpatient (CLI) | payer BC | END 2022-10-12 09:30 | disposition home or self-care (01) | LOC: SCSMRI 09:29 | PROVIDERS: ATTEND Nurse Practitioner Family | DX: M54.14 Radiculopathy, thoracic region (principal) | CPT/HCPCS: 72146 ==